=== PATIENT | female | born 1995 | race Caucasian/White ===

== ENCOUNTER 2021-02-06 15:43 | Inpatient (IN) | payer OTHER ==
[~2021-02-06] VITALS: Ht 165.1 cm; Wt 119.6 kg
[2021-02-06] MEDS ORDERED: HALOPERIDOL 5 MG TABLET PO PRN (16:30)
[2021-02-06 16:37] LABS: GLUCOMETER DEV NAME(LOC) POC.BV
[2021-02-06] MEDS ORDERED: HYDR50CA9 PO (17:49)
[2021-02-06] MEDS ORDERED: ARIP15TA27 PO (17:49)
[2021-02-06] MEDS ORDERED: TRAZ-257 PO (17:49)
[2021-02-06] MEDS ORDERED: OXCA300T57 PO (17:49)
[2021-02-06] MEDS ORDERED: DULO60CA98 PO (17:49)
[2021-02-06] MEDS ORDERED: ARIP10TA38 PO (17:51)
[2021-02-06 18:14] VITALS: BP 131/89
[2021-02-06] MEDS: LORazepam 2 MG TABLET PO PRN (18:36)
[2021-02-06] MEDS: ZOLPIDEM TARTRATE 10 MG TABLET PO PRN (22:53)
[2021-02-07 00:40] VITALS: BP 131/82
[2021-02-07 07:43] LABS: BASOPHILS % (AUTO) 0.3 % (0.0-2.0); EOSINOPHILS % (AUTO) 5.1 % (1.0-6.0); HEMATOCRIT 43.2 % (36-46); HEMOGLOBIN 14.3 g/dL (12.0-16.0); LYMPHOCYTES # (AUTO) 3.3 K/uL (1.0-4.8); LYMPHOCYTES % (AUTO) 37.3 % (22.0-44.0); MEAN CORPUSCULAR HEMOGLOBIN 27.1 pg (26.0-34.0); MEAN CORPUSCULAR HGB CONC 33.1 G/dL (31.0-37.0); MEAN CORPUSCULAR VOLUME 82 fL (80-100); MONOCYTES # (AUTO) 0.6 K/uL (0.1-1.0); MONOCYTES % (AUTO) 6.6 % (2.0-9.0); NEUTROPHILS # (AUTO) 4.5 K/uL (1.8-7.7); NEUTROPHILS % (AUTO) 50.7 % (40.0-70.0); PLATELET COUNT (AUTO) 275 K/uL (150-450); RED BLOOD CELL COUNT(AUTO) 5.26 MIL/uL (4.00-5.20)
[2021-02-07 07:56] LABS: AMPHET/METH SCREEN,URINE NEGATIVE (NEGATIVE); BARBITURATE SCREEN, URINE NEGATIVE (NEGATIVE); BENZODIAZEPINES SCREEN,URINE NEGATIVE (NEGATIVE); CANNABINOID SCREEN,URINE NEGATIVE (NEGATIVE); COCAINE SCREEN,URINE NEGATIVE (NEGATIVE); METHADONE SCREEN, URINE NEGATIVE (NEGATIVE); OPIATE SCREEN,URINE NEGATIVE (NEGATIVE)
[2021-02-07 08:07] LABS: ALANINE AMINOTRANSFERASE 40 U/L (12-78); ALBUMIN 3.3 g/dL (3.4-5.0); ALKALINE PHOSPHATASE 74 U/L (46-116); ANION GAP 8 mmol/L (8-16); ASPARTATE AMINOTRANSFERASE 20 U/L (15-37); BILIRUBIN,TOTAL 0.4 mg/dL (0.1-1.0); CALCIUM, TOTAL 8.9 mg/dL (8.8-10.5); CARBON DIOXIDE 28 mmol/L (22-29); CHLORIDE 102 mmol/L (98-107); CHOL/HDL RATIO 3.9 (3.9-5.7); CHOLESTEROL 179 mg/dL (131-200); FREE T4 (FREE THYROXINE) 1.13 ng/dL (0.76-1.46); GLOMERULAR FILTR. RATE CALC > 60 mL/min (>60); GLUCOSE,RANDOM 113 mg/dL (70-110); HDL CHOLESTEROL 46 mg/dL (40-60); LDL CHOL (CALC.) 109 mg/dL (0-130); POTASSIUM 3.8 mmol/L (3.5-5.1); SODIUM SERUM 138 mmol/L (136-145); THYROID STIMULATING HORMONE 1.07 uIU/mL (0.36-3.74); TOTAL PROTEIN, SERUM 7.7 g/dL (6.4-8.2); TRIGLYCERIDES 119 mg/dL (15-150); UREA NITROGEN, BLOOD 6 mg/dL (7-18)
[2021-02-07 08:07] LABS: PHENCYCLIDINE SCREEN,URINE NEGATIVE (NEGATIVE)
[2021-02-07 08:14] VITALS: BP 139/107
[2021-02-07] MEDS ORDERED: IBUPROFEN 600 MG TABLET PO PRN (08:15)
[2021-02-07] MEDS ORDERED: PETROLATUM,WHITE 28 GM JELLY TP PRN (08:15)
[2021-02-07] MEDS ORDERED: ONDANSETRON HCL 4 MG TABLET PO PRN (08:15)
[2021-02-07] MEDS ORDERED: OMEPRAZOLE 20 MG CAPSULE PO PRN (08:15)
[2021-02-07] MEDS ORDERED: MAGNESIUM HYDROXIDE SUSPENSION 30 ML UDCUP PO PRN (08:15)
[2021-02-07] MEDS ORDERED: LOPERAMIDE HCL 2 MG CAPSULE PO PRN (08:15)
[2021-02-07] MEDS ORDERED: ACETAMINOPHEN 325 MG TABLET PO PRN (08:15)
[2021-02-07] MEDS ORDERED: BENZOCAINE/MENTHOL LOZENGE PO PRN (08:15)
[2021-02-07] MEDS ORDERED: DOCUSATE SODIUM 100 MG CAPSULE PO PRN (08:15)
[2021-02-07] MEDS ORDERED: CloNIDine HCL 0.1 MG TABLET PO PRN (08:15)
[2021-02-07] MEDS ORDERED: ALBUTEROL SULFATE HFA 90 MCG/PUFF 8 GM INHALER IH PRN (08:15)
[2021-02-07] MEDS ORDERED: MAG HYDROX/AL HYDROX/SIMETH ES 30 ML SUSPENSION UDCUP PO PRN (08:15)
[2021-02-07] MEDS ORDERED: BACITRACIN 28 GM OINTMENT TP PRN (08:15)
[2021-02-07] MEDS: NICOTINE 14 MG/24 HOUR PATCH TD SCH (09:00)
[2021-02-07] MEDS: LORazepam 2 MG TABLET PO PRN (11:48)
[2021-02-07] MEDS: ARIPiprazole 15 MG TABLET PO SCH (13:29)
[2021-02-07] MEDS: GABAPENTIN 300 MG CAPSULE PO SCH ×2 (13:29→16:42)
[2021-02-07 16:20] VITALS: BP 104/62
[2021-02-07] MEDS: OXcarbazepine 300 MG TABLET PO SCH (16:42)
[2021-02-07] MEDS: DIVALPROEX SODIUM 500 MG DR TABLET PO SCH (16:42)
[2021-02-07] MEDS: ZOLPIDEM TARTRATE 10 MG TABLET PO PRN (21:26)
[2021-02-08 05:33] VITALS: BP 130/76
[2021-02-08 08:12] VITALS: BP 136/85
[2021-02-08] MEDS: GABAPENTIN 300 MG CAPSULE PO SCH ×3 (08:30→16:09)
[2021-02-08] MEDS: ARIPiprazole 15 MG TABLET PO SCH (08:30)
[2021-02-08] MEDS: NICOTINE 14 MG/24 HOUR PATCH TD SCH (08:30)
[2021-02-08] MEDS: DIVALPROEX SODIUM 500 MG DR TABLET PO SCH ×2 (08:31→16:09)
[2021-02-08] MEDS: OXcarbazepine 300 MG TABLET PO SCH ×2 (08:33→16:09)
[2021-02-08] MEDS ORDERED: GABA-1181 PO (15:34)
[2021-02-08] MEDS ORDERED: DIVA250T4 PO (15:36)
[2021-02-08 16:12] VITALS: BP 112/82
== END 2021-02-08 16:50 | disposition home or self-care (01) | DRG 885 ==
LOC: B2S 17:39
PROVIDERS: ADMIT Psychiatry & Neurology Psychiatry; ATTEND Psychiatry & Neurology Psychiatry
DX: F31.9 Bipolar disorder, unspecified (principal); R45.851 Suicidal ideations; F25.9 Schizoaffective disorder, unspecified; Z20.822 Contact with and (suspected) exposure to COVID-19; F41.9 Anxiety disorder, unspecified; I10 Essential (primary) hypertension; F17.210 Nicotine dependence, cigarettes, uncomplicated; F19.10 Other psychoactive substance abuse, uncomplicated; G47.00 Insomnia, unspecified; K59.00 Constipation, unspecified; Z79.899 Other long term (current) drug therapy
CPT/HCPCS: 80053; 80061; 80307; 84439; 84443; 84703; 85025